=== PATIENT | male | born 1985 | race Two or more races ===

== ENCOUNTER 2021-12-27 09:58 | Day surgery (SDC) | payer OTHER ==
[~2021-12-27] VITALS: Ht 180.3 cm; Wt 74.8 kg
[~2021-12-27 09:58] MED LIST: AMOXICILLIN250 M1 PO; CANABIS; DESCOVY 200-251 EACH PO
[2021-12-27] MEDS ORDERED: PERCOCET 5-3251 EACH PO (13:37)
== END 2021-12-27 14:30 | disposition home or self-care (01) ==
LOC: CIR.AMB 09:58
PROVIDERS: ATTEND Surgery
DX: K60.3 Anal fistula (principal); K62.4 Stenosis of anus and rectum; K62.5 Hemorrhage of anus and rectum; K59.00 Constipation, unspecified; K21.9 Gastro-esophageal reflux disease without esophagitis; K29.70 Gastritis, unspecified, without bleeding; F17.200 Nicotine dependence, unspecified, uncomplicated; F12.90 Cannabis use, unspecified, uncomplicated; Z20.822 Contact with and (suspected) exposure to COVID-19

== ENCOUNTER 2022-05-08 06:19 | Day surgery (SDC) | payer OTHER ==
[~2022-05-08] VITALS: Ht 180.3 cm; Wt 76.2 kg
[~2022-05-08 06:19] MED LIST changes: +PERCOCET 5-3251 EACH PO; +[UNRECOGNIZED DRUG - OTHER] PO
[2022-05-08] MEDS ORDERED: PERCOCET 5-3251 EACH PO (08:47)
== END 2022-05-08 14:05 | disposition home or self-care (01) ==
LOC: CIR.AMB 06:19
PROVIDERS: ATTEND Surgery
DX: K60.3 Anal fistula (principal); K62.89 Other specified diseases of anus and rectum; K29.70 Gastritis, unspecified, without bleeding; K21.9 Gastro-esophageal reflux disease without esophagitis; F12.90 Cannabis use, unspecified, uncomplicated; Z20.822 Contact with and (suspected) exposure to COVID-19